=== PATIENT | male | born 1980 | race Caucasian/White ===

== ENCOUNTER 2020-02-13 16:11 | Observation (INO) | payer BC ==
[2020-02-13] MEDS: Sodium Chloride 0.9% 10 ML Syringe FLUSH PRN ×2 (17:04→18:13)
[2020-02-13] MEDS ORDERED: LORazepam 2 MG/ML SDV IVPUSH ONE (17:12)
--- NOTE | 2020-02-13 17:15 | EDM.PDOC ---
ED HPI GENERAL MEDICAL PROBLEM - General Chief Complaint: General Stated Complaint: NEAR SYNCOPE EPISODES Time Seen by Provider: 02/13/20 17:12 Source of Information: Reports: Patient, Family History Limitations: Reports: No Limitations - History of Present Illness INITIAL COMMENTS - FREE TEXT/NARRATIVE: The patient is an unfortunate 39-year-old male who presents the emergency department today with complaints of syncopal episode. The patient and spouse report that he was driving down the road he reports that he became very lightheaded and then reports that he saw black the reports that he clenched up and grabbed the steering well and flexed all of his muscles even his jaw and after he came to it took up to 5 minutes for him to regain his normal mental st atus. The patient normally drinks 4-5 beers per day, he was out drinking this weekend and has not had any alcohol today as they were driving home from [place]. Initial incident occurred 3 hours ago the spouse reports approximately 20 minutes prior to arrival he had an episode where he almost vomited this time the patient is diffusely tremulous - Related Data Allergies Allergy/AdvReac Type Severity Reaction Status Date / Time No Known Allergies Allergy Verified 02/13/20 16:29 Home Meds: Home Meds Acetaminophen/oxyCODONE [Percocet 325-5 MG] 1 tab PO Q4H PRN #20 tablet 12/04/14 [Rx] Cyclobenzaprine [Flexeril] 5 mg PO Q8HR PRN #10 tab 12/04/14 [Rx] Naproxen [Naprosyn] 500 mg PO Q12HR #30 tab 12/04/14 [Rx] Past Medical History - Past Health History Medical/Surgical History: Denies Medical/Surgical History Social & Family History - Tobacco Use Smoking Status *Q: Never Smoker - Caffeine Use Caffeine Use: Reports: Energy Drinks - Recreational Drug Use Recreational Drug Use: No ED ROS GENERAL - Review of Systems Review Of Systems: See Below Constitutional: Denies: Fever, Chills Neurological: Reports: Seizure, Syncope, Tremors ED EXAM, GENERAL - Physical Exam Exam: See Below Exam Limited By: No Limitations General Appearance: Alert, WD/WN, Moderate Distress, Other (Tremulous) Eye Exam: Bilateral Eye: Nystagmus (Laterally) Throat/Mouth: Normal Inspection, Normal Lips, Normal Teeth, Normal Gums, Normal Oropharynx, Normal Voice, No Airway Compromise Head: Atraumatic, Normocephalic Neck: Normal Inspection, Supple, Non-Tender, Full Range of Motion Respiratory/Chest: No Respiratory Distress, Lungs Clear, Normal Breath Sounds, No Accessory Muscle Use, Chest Non-Tender Cardiovascular: Normal Peripheral Pulses, Regular Rate, Rhythm, No Edema, No Gallop, No JVD, No Murmur, No Rub GI/Abdominal: Normal Bowel Sounds, Soft, Non-Tender, No Organomegaly, No Distention, No Abnormal Bruit, No Mass Back Exam: Normal Inspection, Full Range of Motion, NT Extremities: Normal Inspection, Normal Range of Motion, Non-Tender, Normal Capillary Refill, No Pedal Edema Neurological: Alert, Oriented, Other (Tremulous) Skin Exam: Warm, Dry, No Rash Course - Vital Signs Text/Narrative:: Head CT "impression: No acute abnormality." Chest x-ray interpreted by me LEIGH Last Recorded V/S: Last Vital Signs Temp 98.6 F 02/13/20 16:23 Pulse 94 02/13/20 16:23 Resp 18 02/13/20 16:23 BP 156/90 H 02/13/20 16:23 Pulse Ox 100 02/13/20 16:23 - Orders/Labs/Meds Orders: Active Orders 24 hr Category Date Time Status EKG Documentation Completion [RC] ASDIRECTED Care 02/13/20 16:42 Active Head wo Cont [CT] Stat Exams 02/13/20 17:15 Taken INR,PT,PROTHROMBIN TIME [COAG] Stat Lab 02/13/20 16:27 Received Sodium Chloride 0.9% [Saline Flush] Med 02/13/20 16:41 Active 10 ml FLUSH ASDIRECTED PRN Saline Lock Insert [OM.PC] Stat Oth 02/13/20 16:42 Ordered EKG 12 Lead [EK] Stat Ther 02/13/20 16:41 Ordered Medication Orders Sodium Chloride (Saline Flush) 10 ml FLUSH ASDIRECTED PRN PRN Reason: Keep Vein Open Last Admin: 02/13/20 18:13 Dose: 10 ml Documented by: Admin: 02/13/20 17:04 Dose: 10 ml Documented by: CLARK Labs: Laboratory Tests 02/13/20 02/13/20 02/13/20 Range/Units 16:27 16:27 18:14 WBC 10.53 H (4.23-9.07) K/mm3 RBC 4.80 (4.63-6.08) M/mm3 Hgb 15.8 (13.7-17.5) gm/dl Hct 44.2 (40.1-51.0) % MCV 92.1 (79.0-92.2) fl MCH 32.9 H (25.7-32.2) pg MCHC 35.7 H (32.2-35.5) g/dl RDW Std Deviation 41.4 (35.1-43.9) fL Plt Count 241 (163-337) K/mm3 MPV 10.0 (9.4-12.3) fl Neut % (Auto) 79.4 H (34.0-67.9) % Lymph % (Auto) 13.0 L (21.8-53.1) % [place] % (Auto) 7.0 (5.3-12.2) % Eos % (Auto) 0.1 L (0.8-7.0) Baso % (Auto) 0.4 (0.1-1.2) % Neut # (Auto) 8.36 H (1.78-5.38) K/mm3 Lymph # (Auto) 1.37 (1.32-3.57) K/mm3 [place] # (Auto) 0.74 (0.30-0.82) K/mm3 Eos # (Auto) 0.01 L (0.04-0.54) K/mm3 Baso # (Auto) 0.04 (0.01-0.08) K/mm3 Manual Slide Review Normal smear Sodium 132 L (136-145) mEq/L Potassium 3.0 L (3.5-5.1) mEq/L Chloride 92 L (98-107) mEq/L Carbon Dioxide 26 (21-32) mEq/L Anion Gap 17.0 H (5-15) BUN 4 L (7-18) mg/dL Creatinine 0.8 (0.7-1.3) mg/dL Est Cr Clr Drug Dosing 137.42 mL/min Estimated GFR (MDRD) > 60 (>60) mL/min BUN/Creatinine Ratio 5.0 L (14-18) Glucose 151 H (74-106) mg/dL Calcium 8.1 L (8.5-10.1) mg/dL Total Bilirubin 1.7 H (0.2-1.0) mg/dL AST 78 H (15-37) U/L ALT 49 (16-63) U/L Alkaline Phosphatase 107 (46-116) U/L Troponin I < 0.017 (0.00-0.056) ng/mL Total Protein 7.4 (6.4-8.2) g/dl Albumin 4.4 (3.4-5.0) g/dl Globulin 3.0 gm/dL Albumin/Globulin Ratio 1.5 (1-2) Urine Color Light yellow (Yellow) Urine Appearance Clear (Clear) Urine pH 7.0 (5.0-8.0) Ur Specific [place] 1.015 (1.005-1.030) Urine Protein Negative (Negative) Urine Glucose (UA) Negative (Negative) Urine Ketones Negative (Negative) Urine Occult Blood Negative (Negative) Urine Nitrite Negative (Negative) Urine Bilirubin Negative (Negative) Urine Urobilinogen 0.2 (0.2-1.0) Ur Leukocyte Esterase Negative (Negative) Urine Opiates Screen (EIZTTN=042) Ur Buprenorphine Scrn (CUTOFF=10) Ur Oxycodone Screen (AGL0VD=395) Urine Methadone Screen (YPP6DJ=803) Ur Propoxyphene Screen (PLLOFA=354) Ur Barbiturates Screen (UJKTYX=954) Ur Tricyclics Screen (JXCEBN=550) Ur Phencyclidine Scrn (CUTOFF=25) Ur Amphetamine Screen (PFDPXQ=967) U Methamphetamines Scrn (QSSXLT=729) U Benzodiazepines Scrn (KFQITB=558) U Cocaine Metab Screen (MVSASG=338) U Marijuana (THC) Screen (CUTOFF=50) Ethyl Alcohol 0.01 (0.00) gm% 02/13/20 Range/Units 18:14 WBC (4.23-9.07) K/mm3 RBC (4.63-6.08) M/mm3 Hgb (13.7-17.5) gm/dl Hct (40.1-51.0) % MCV (79.0-92.2) fl MCH (25.7-32.2) pg MCHC (32.2-35.5) g/dl RDW Std Deviation (35.1-43.9) fL Plt Count (163-337) K/mm3 MPV (9.4-12.3) fl Neut % (Auto) (34.0-67.9) % Lymph % (Auto) (21.8-53.1) % [place] % (Auto) (5.3-12.2) % Eos % (Auto) (0.8-7.0) Baso % (Auto) (0.1-1.2) % Neut # (Auto) (1.78-5.38) K/mm3 Lymph # (Auto) (1.32-3.57) K/mm3 [place] # (Auto) (0.30-0.82) K/mm3 Eos # (Auto) (0.04-0.54) K/mm3 Baso # (Auto) (0.01-0.08) K/mm3 Manual Slide Review Sodium (136-145) mEq/L Potassium (3.5-5.1) mEq/L Chloride (98-107) mEq/L Carbon Dioxide (21-32) mEq/L Anion Gap (5-15) BUN (7-18) mg/dL Creatinine (0.7-1.3) mg/dL Est Cr Clr Drug Dosing mL/min Estimated GFR (MDRD) (>60) mL/min BUN/Creatinine Ratio (14-18) Glucose (74-106) mg/dL Calcium (8.5-10.1) mg/dL Total Bilirubin (0.2-1.0) mg/dL AST (15-37) U/L ALT (16-63) U/L Alkaline Phosphatase (46-116) U/L Troponin I (0.00-0.056) ng/mL Total Protein (6.4-8.2) g/dl Albumin (3.4-5.0) g/dl Globulin gm/dL Albumin/Globulin Ratio (1-2) Urine Color (Yellow) Urine Appearance (Clear) Urine pH (5.0-8.0) Ur Specific [place] (1.005-1.030) Urine Protein (Negative) Urine Glucose (UA) (Negative) Urine Ketones (Negative) Urine Occult Blood (Negative) Urine Nitrite (Negative) Urine Bilirubin (Negative) Urine Urobilinogen (0.2-1.0) Ur Leukocyte Esterase (Negative) Urine Opiates Screen Negative (KUOSXU=144) Ur Buprenorphine Scrn Negative (CUTOFF=10) Ur Oxycodone Screen Negative (UIS9DD=310) Urine Methadone Screen Negative (MVI5UU=748) Ur Propoxyphene Screen Negative (CCEXDP=361) Ur Barbiturates Screen Negative (JFYCBY=547) Ur Tricyclics Screen Negative (ZLHZZA=179) Ur Phencyclidine Scrn Negative (CUTOFF=25) Ur Amphetamine Screen Negative (JMDHVK=660) U Methamphetamines Scrn Negative (HNZSEZ=401) U Benzodiazepines Scrn Negative (OASLTE=881) U Cocaine Metab Screen Negative (RAFKQK=252) U Marijuana (THC) Screen Negative (CUTOFF=50) Ethyl Alcohol (0.00) gm% Meds: Medications Generic Name Dose Route Start Last Admin Trade Name Freq PRN Reason Stop Dose Admin Sodium Chloride 10 ml 02/13/20 16:41 02/13/20 18:13 Saline Flush FLUSH 10 ml ASDIRECTED PRN Administration Keep Vein Open Discontinued Medications Generic Name Dose Route Start Last Admin Trade Name Freq PRN Reason Stop Dose Admin Lorazepam 1 mg 02/13/20 17:12 02/13/20 18:14 Ativan IVPUSH 02/13/20 17:13 1 mg ONETIME ONE Administration - Re-Assessments/Exams Free Text/Narrative Re-Assessment/Exam: 02/13/20 19:[address] Giordano who agrees to place the patient in observation status at this time Departure - Departure Time of Disposition: 19:17 Disposition: Refer to Observation Condition: Good Clinical Impression: Seizure Alcohol withdrawal Qualifiers: Complication of substance-induced condition: with unspecified complication Qualified Code(s): F10.239 - Alcohol dependence with withdrawal, unspecified - Discharge Information Referrals: PCP,None [Primary Care Provider] - Forms: ED Department Discharge Sepsis Event Note (ED) - Evaluation Sepsis Screening Result: No Definite Risk - Focused Exam Vital Signs: Vital Signs Temp Pulse Resp BP Pulse Ox 02/13/20 16:23 98.6 F 94 18 156/90 H 100 - My Orders Last 24 Hours: My Active Orders 02/13/20 16:27 INR,PT,PROTHROMBIN TIME [COAG] Stat 02/13/20 16:41 Sodium Chloride 0.9% [Saline Flush] 10 ml FLUSH ASDIRECTED PRN EKG 12 Lead [EK] Stat 02/13/20 16:42 EKG Documentation Completion [RC] ASDIRECTED Saline Lock Insert [OM.PC] Stat 02/13/20 17:15 Head wo Cont [CT] Stat - Assessment/Plan Last 24 Hours: My Active Orders 02/13/20 16:27 INR,PT,PROTHROMBIN TIME [COAG] Stat 02/13/20 16:41 Sodium Chloride 0.9% [Saline Flush] 10 ml FLUSH ASDIRECTED PRN EKG 12 Lead [EK] Stat 02/13/20 16:42 EKG Documentation Completion [RC] ASDIRECTED Saline Lock Insert [OM.PC] Stat 02/13/20 17:15 Head wo Cont [CT] Stat
--- NOTE | 2020-02-13 17:19 | CR ---
Chest: PA and lateral views of the chest were obtained. Comparison: No previous chest imaging. Heart size and mediastinum are normal. Lungs show increased areas of density overlying the left 7th posterolateral rib and 6th anterolateral rib most likely due to subacute healing rib fractures. Impression: 1. Presumed healing rib fractures as noted above. 2. Nothing acute is otherwise seen. Diagnostic code #3 This report was dictated in MDT
--- NOTE | 2020-02-13 20:22 | PCM.HP.2 ---
H&P History of Present Illness - General Date of Service: 02/13/20 Source of Information: Patient, EMS, Family History Limitations: Reports: No Limitations - History of Present Illness Initial Comments - Free Text/Narative: 39 year old male with hx of altered conciseness and post ictal period x 2 [address] home [place] [employer]. he reports drinking yesterday 12-14 beers during evening /day. no prev hx of blackouts /syncope/ seizures. no obie heart disease but hypertension untreated and lvh on ekg. freq skips meals and did not eat today . felt sweaty before locking up . he could hear talking but couldn't respond. felt out of body and then cannot remember anything for many minutes. muscles not sore but was tubing . na and k low and drinking diet pop and water today. non smoker.no drugs / no hx of withdrawal events before and otherwise healthy / 2 leg surgeries and hx of ringing in ears and normal hearing Onset of Symptoms: Reports: Today Symptom Onset Date: 02/13/20 Location: Reports: Generalized Associated Symptoms: Reports: Confusion, Diaphoresis, Nausea/Vomiting, Seizure, Syncope - Related Data Allergies/Adverse Reactions: Allergies Allergy/AdvReac Type Severity Reaction Status Date / Time No Known Allergies Allergy Verified 02/13/20 16:29 Home Medications: Home Meds Acetaminophen/oxyCODONE [Percocet 325-5 MG] 1 tab PO Q4H PRN #20 tablet 12/04/14 [Rx] Cyclobenzaprine [Flexeril] 5 mg PO Q8HR PRN #10 tab 12/04/14 [Rx] Naproxen [Naprosyn] 500 mg PO Q12HR #30 tab 12/04/14 [Rx] Past Medical History - Past Health History Medical/Surgical History: Denies Medical/Surgical History Social & Family History - Tobacco Use Smoking Status *Q: Never Smoker - Caffeine Use Caffeine Use: Reports: Energy Drinks - Recreational Drug Use Recreational Drug Use: No H&P Review of Systems - Review of Systems: Review Of Systems: See Below General: Reports: Diaphoresis HEENT: Reports: No Symptoms Pulmonary: Reports: No Symptoms Cardiovascular: Reports: Blood Pressure Problem Gastrointestinal: Reports: No Symptoms Genitourinary: Reports: No Symptoms Musculoskeletal: Reports: No Symptoms Skin: Reports: No Symptoms Psychiatric: Reports: No Symptoms Neurological: Reports: No Symptoms, Tremors Hematologic/Lymphatic: Reports: No Symptoms Immunologic: Reports: No Symptoms Exam - Exam Exam: See Below - Vital Signs Vital Signs: Last Vital Signs Temp 37.2 C 02/13/20 19:40 Pulse 85 02/13/20 19:40 Resp 16 02/13/20 19:40 BP 138/93 H 02/13/20 19:40 Pulse Ox 98 02/13/20 19:40 Weight: 88.451 kg - Exam General: Alert, Oriented, 4 HEENT: PERRLA, Hearing Intact, Mucosa Moist & [place], Nares Patent, Normal Nasal Septum, Posterior Pharynx Clear, Conjunctiva Clear, EOMI, EACs Clear, TMs Clear Neck: Supple, Trachea Midline, 2 Lungs: Clear to Auscultation, Normal Respiratory Effort Cardiovascular: Regular Rate, Regular Rhythm GI/Abdominal Exam: Normal Bowel Sounds, Soft, Non-Tender, No Organomegaly, No Distention, No Abnormal Bruit, No Mass, Pelvis Stable (Male) Exam: No Hernia, Normal Inspection, Normal Prostate, Circumcised Rectal (Males) Exam: Normal Exam, Normal Rectal Tone, Prostate Normal Back Exam: Normal Inspection, Full Range of Motion, NT Extremities: Normal Inspection, Normal Range of Motion, Non-Tender, No Pedal Edema, Normal Capillary Refill Skin: Warm, Dry, Intact Neurological: Cranial Nerves Intact, Reflexes Equal Bilateral Neuro Extensive - Mental Status: Alert, Oriented x3, Normal Mood/Affect, Normal Cognition Neuro Extensive - Motor, Sensory, Reflexes: CN II-XII Intact, Normal Gait, Normal Reflexes Psychiatric: Alert, Normal Affect, Normal Mood - Patient Data Lab Results Last 24 hrs: Laboratory Results - last 24 hr 02/13/20 02/13/20 02/13/20 Range/Units 16:27 16:27 18:14 WBC 10.53 H (4.23-9.07) K/mm3 RBC 4.80 (4.63-6.08) M/mm3 Hgb 15.8 (13.7-17.5) gm/dl Hct 44.2 (40.1-51.0) % MCV 92.1 (79.0-92.2) fl MCH 32.9 H (25.7-32.2) pg MCHC 35.7 H (32.2-35.5) g/dl RDW Std Deviation 41.4 (35.1-43.9) fL Plt Count 241 (163-337) K/mm3 MPV 10.0 (9.4-12.3) fl Neut % (Auto) 79.4 H (34.0-67.9) % Lymph % (Auto) 13.0 L (21.8-53.1) % [place] % (Auto) 7.0 (5.3-12.2) % Eos % (Auto) 0.1 L (0.8-7.0) Baso % (Auto) 0.4 (0.1-1.2) % Neut # (Auto) 8.36 H (1.78-5.38) K/mm3 Lymph # (Auto) 1.37 (1.32-3.57) K/mm3 [place] # (Auto) 0.74 (0.30-0.82) K/mm3 Eos # (Auto) 0.01 L (0.04-0.54) K/mm3 Baso # (Auto) 0.04 (0.01-0.08) K/mm3 Manual Slide Review Normal smear Sodium 132 L (136-145) mEq/L Potassium 3.0 L (3.5-5.1) mEq/L Chloride 92 L (98-107) mEq/L Carbon Dioxide 26 (21-32) mEq/L Anion Gap 17.0 H (5-15) BUN 4 L (7-18) mg/dL Creatinine 0.8 (0.7-1.3) mg/dL Est Cr Clr Drug Dosing 137.42 mL/min Estimated GFR (MDRD) > 60 (>60) mL/min BUN/Creatinine Ratio 5.0 L (14-18) Glucose 151 H (74-106) mg/dL Calcium 8.1 L (8.5-10.1) mg/dL Total Bilirubin 1.7 H (0.2-1.0) mg/dL AST 78 H (15-37) U/L ALT 49 (16-63) U/L Alkaline Phosphatase 107 (46-116) U/L Troponin I < 0.017 (0.00-0.056) ng/mL Total Protein 7.4 (6.4-8.2) g/dl Albumin 4.4 (3.4-5.0) g/dl Globulin 3.0 gm/dL Albumin/Globulin Ratio 1.5 (1-2) Urine Color Light yellow (Yellow) Urine Appearance Clear (Clear) Urine pH 7.0 (5.0-8.0) Ur Specific [place] 1.015 (1.005-1.030) Urine Protein Negative (Negative) Urine Glucose (UA) Negative (Negative) Urine Ketones Negative (Negative) Urine Occult Blood Negative (Negative) Urine Nitrite Negative (Negative) Urine Bilirubin Negative (Negative) Urine Urobilinogen 0.2 (0.2-1.0) Ur Leukocyte Esterase Negative (Negative) Urine Opiates Screen (NJCNDH=382) Ur Buprenorphine Scrn (CUTOFF=10) Ur Oxycodone Screen (HMG5SR=925) Urine Methadone Screen (QYB8LM=339) Ur Propoxyphene Screen (JBDOKP=317) Ur Barbiturates Screen (CABSUL=439) Ur Tricyclics Screen (ULAUVG=126) Ur Phencyclidine Scrn (CUTOFF=25) Ur Amphetamine Screen (ADWQXQ=482) U Methamphetamines Scrn (YUPHJK=683) U Benzodiazepines Scrn (NEOADU=013) U Cocaine Metab Screen (AZIZXR=866) U Marijuana (THC) Screen (CUTOFF=50) Ethyl Alcohol 0.01 (0.00) gm% 02/13/20 Range/Units 18:14 WBC (4.23-9.07) K/mm3 RBC (4.63-6.08) M/mm3 Hgb (13.7-17.5) gm/dl Hct (40.1-51.0) % MCV (79.0-92.2) fl MCH (25.7-32.2) pg MCHC (32.2-35.5) g/dl RDW Std Deviation (35.1-43.9) fL Plt Count (163-337) K/mm3 MPV (9.4-12.3) fl Neut % (Auto) (34.0-67.9) % Lymph % (Auto) (21.8-53.1) % [place] % (Auto) (5.3-12.2) % Eos % (Auto) (0.8-7.0) Baso % (Auto) (0.1-1.2) % Neut # (Auto) (1.78-5.38) K/mm3 Lymph # (Auto) (1.32-3.57) K/mm3 [place] # (Auto) (0.30-0.82) K/mm3 Eos # (Auto) (0.04-0.54) K/mm3 Baso # (Auto) (0.01-0.08) K/mm3 Manual Slide Review Sodium (136-145) mEq/L Potassium (3.5-5.1) mEq/L Chloride (98-107) mEq/L Carbon Dioxide (21-32) mEq/L Anion Gap (5-15) BUN (7-18) mg/dL Creatinine (0.7-1.3) mg/dL Est Cr Clr Drug Dosing mL/min Estimated GFR (MDRD) (>60) mL/min BUN/Creatinine Ratio (14-18) Glucose (74-106) mg/dL Calcium (8.5-10.1) mg/dL Total Bilirubin (0.2-1.0) mg/dL AST (15-37) U/L ALT (16-63) U/L Alkaline Phosphatase (46-116) U/L Troponin I (0.00-0.056) ng/mL Total Protein (6.4-8.2) g/dl Albumin (3.4-5.0) g/dl Globulin gm/dL Albumin/Globulin Ratio (1-2) Urine Color (Yellow) Urine Appearance (Clear) Urine pH (5.0-8.0) Ur Specific [place] (1.005-1.030) Urine Protein (Negative) Urine Glucose (UA) (Negative) Urine Ketones (Negative) Urine Occult Blood (Negative) Urine Nitrite (Negative) Urine Bilirubin (Negative) Urine Urobilinogen (0.2-1.0) Ur Leukocyte Esterase (Negative) Urine Opiates Screen Negative (LYXBWN=052) Ur Buprenorphine Scrn Negative (CUTOFF=10) Ur Oxycodone Screen Negative (EDR3PP=403) Urine Methadone Screen Negative (YCE5TV=823) Ur Propoxyphene Screen Negative (AXOGAY=623) Ur Barbiturates Screen Negative (AZYGWB=043) Ur Tricyclics Screen Negative (LHAPTI=431) Ur Phencyclidine Scrn Negative (CUTOFF=25) Ur Amphetamine Screen Negative (HTNMLI=554) U Methamphetamines Scrn Negative (UTMNHF=608) U Benzodiazepines Scrn Negative (SHGHQU=157) U Cocaine Metab Screen Negative (ZTNVXS=070) U Marijuana (THC) Screen Negative (CUTOFF=50) Ethyl Alcohol (0.00) gm% Result Diagrams: 02/13/20 16:27 02/13/20 16:27 EKG INTERPRETATION Rhythm: NSR [place]: LAD-Left [place] Deviation P-Wave: Enlarged QRS: Normal ST-T: Elevated QT: Normal (lad/lvh voltages no volume overload) Sepsis Event Note - Evaluation Sepsis Screening Result: No Definite Risk - Focused Exam Vital Signs: Vital Signs Temp Pulse Resp BP Pulse Ox 02/13/20 19:40 37.2 C 85 16 138/93 H 98 02/13/20 16:23 37.0 C 94 18 156/90 H 100 Date Exam was Performed: 02/13/20 Time Exam was Performed: 20:15 - Problem List (1) Hyponatremia SNOMED Code(s): 14935934 ICD Code: E87.1 - HYPO-OSMOLALITY AND HYPONATREMIA Status: Acute Priority: Medium Current Visit: Yes Onset Date: ~02/13/20 Problem Details: cause not clear but probably helped cause muscle tightening and ? seizure. (2) Hypokalemia SNOMED Code(s): 61318036 ICD Code: E87.6 - HYPOKALEMIA Status: Acute Priority: Medium Current Visit: Yes Onset Date: ~02/13/20 Problem Details: will replace ca and k (3) Alcohol withdrawal SNOMED Code(s): 475353333 ICD Code: F10.239 - ALCOHOL DEPENDENCE WITH WITHDRAWAL, UNSPECIFIED Status: Acute Priority: Medium Current Visit: Yes Onset Date: ~02/13/20 Qualifiers: Complication of substance-induced condition: with unspecified complication Qualified Code(s): F10.239 - Alcohol dependence with withdrawal, unspecified (4) Seizure SNOMED Code(s): 33515658 ICD Code: R56.9 - UNSPECIFIED CONVULSIONS Status: Acute Priority: Medium Current Visit: Yes Onset Date: ~02/13/20 Problem Details: hypocalcemia with increased anion gap and hx of heavy etoh ingestion and not eating today . (5) Hypertension SNOMED Code(s): 53584944 ICD Code: I10 - ESSENTIAL (PRIMARY) HYPERTENSION Status: Acute Priority: Medium Current Visit: Yes Onset Date: ~02/13/20 Qualifiers: Hypertension type: unspecified Qualified Code(s): I10 - Essential (primary) hypertension (6) LVH (left ventricular hypertrophy) SNOMED Code(s): 18478659 ICD Code: I51.7 - CARDIOMEGALY Status: Acute Priority: Medium Current Visit: Yes Onset Date: ~02/13/20 Problem Details: echo ordered Problem List Initiated/Reviewed/Updated: Yes Orders Last 24hrs: Active Orders 24 hr Category Date Time Status EKG Documentation Completion [RC] ASDIRECTED Care 02/13/20 16:42 Active Head wo Cont [CT] Stat Exams 02/13/20 17:15 Taken CORONAVIRUS COVID-19 RAPID [MOLEC] Stat Lab 02/13/20 19:34 Received INR,PT,PROTHROMBIN TIME [COAG] Stat Lab 02/13/20 16:27 Received Sodium Chloride 0.9% [Saline Flush] Med 02/13/20 16:41 Active 10 ml FLUSH ASDIRECTED PRN Saline Lock Insert [OM.PC] Stat Oth 02/13/20 16:42 Ordered EKG 12 Lead [EK] Stat Ther 02/13/20 16:41 Ordered Medication Orders Sodium Chloride (Saline Flush) 10 ml FLUSH ASDIRECTED PRN PRN Reason: Keep Vein Open Last Admin: 02/13/20 18:13 Dose: 10 ml Documented by: Admin: 02/13/20 17:04 Dose: 10 ml Documented by: CLARK Assessment/Plan Comment:: plan correct electrolytes na /k and a.g. monitor for seizure activity / check cpk mri head eeg b12 and folate and thiamine. recheck labs in am . cardiac monitoring . monitor b.p. - Mortality Measure Prognosis:: Good
[2020-02-13] MEDS ORDERED: Thiamine 100 MG in Sodium Chloride 0.9% 100 ML IV ONE (20:38)
[2020-02-14] MEDS: Vitamin B Complex With Vitamin C Cap PO SCH ×2 (00:30→09:43)
[2020-02-14] MEDS ORDERED: Thiamine 100 MG in Sodium Chloride 0.9% 100 ML IV ONE (00:30)
[2020-02-14] MEDS: Potassium Chloride 20 MEQ Tab.ER PO SCH ×2 (00:30→09:43)
[2020-02-14] MEDS: Dextrose 5%-Lact Ringers w/KCl 1,000 ML IV SCH ×2 (00:59→09:43)
--- NOTE | 2020-02-14 06:52 | CT ---
Head CT Technique: Multiple axial sections through the brain were obtained. Intravenous contrast was not utilized. Comparison: No prior intracranial imaging is available. Findings: Ventricles along with basal cisterns and sulci over the convexities are within normal limits for the patient's age. No abnormal parenchymal densities are seen. No evidence of intracranial hemorrhage. No midline shift or mass-effect is appreciated. Bone window settings were reviewed. Visualized mastoid sinuses and paranasal sinuses show nothing acute. No acute calvarial finding is seen. Impression: 1. Nothing acute is identified on noncontrast head CT exam. Diagnostic code #1 This report was dictated in MDT I agree with preliminary report from [facility], finalized on 02/13/20, 6:57 PM Central Daylight Time
[2020-02-14] MEDS ORDERED: diphenhydrAMINE 50 MG/ML SDV IVPUSH ONE (10:49)
[2020-02-14] MEDS ORDERED: Thiamine 100 MG Tab PO SCH (12:00)
[2020-02-14] MEDS ORDERED: Folic Acid 1 MG Tab PO SCH (12:00)
[2020-02-14 12:11] VITALS: BP 147/75; PULSE 87
--- NOTE | 2020-02-14 12:13 | PCM.DCSUM1 ---
Discharge Summary - Hospital Course Free Text/Narrative:: 39 year old male that presented to the ER with 2 syncopal episodes, one of which was was while driving home from [place] after the 10 of February weekend and he reported that he saw black and his reported that he clenched up and grabbed the steering wheel and flexed all his muscles including his jaw which took him about 5 minutes to come out of and back to a normal mental status. 02/13/2020 No previous history of blackouts, syncope, or seizures No congestive heart disease, but does have untreated hypertension and LVH on EKG Non smoker and no drug use No history of withdrawal events before Has a history of 2 prior leg surgeries History of ringing in the ears and has normal hearing States that he was drinking alcohol over the 10 of February weekend and had about 12-14 beers yesterday States that he was drinking diet pop and water today States that he frequently skips meals and did not eat today States that he felt sweaty before locking up while driving States that he could hear his talking to him, but he couldn't respond when he was all locked up States that he felt out of body and then can't remember what had happened States that his muscle don't feel any more sore than they did before the episode and that he was tubing over the weekend Discussed Na and K low in labs and needing to correct electrolytes Na, K, and AG Discussed rechecking labs tomorrow morning with a B12, folate, and thiamine Discussed checking CPK Discussed monitoring for seizure activity Discussed monitoring blood pressure and doing cardiac monitoring Discussed getting an MRI done Discussed getting and EEG done 02/14/2020 denies any doctors ever telling him he has low Na states that he drank about 12 beers daily on Thursday, Thursday, and Thursday states that he didn't drink a lot of water states that he was eating throughout the day states that he drinks energy drinks of Monster and Mountain Dew Kickstarts and soda mainly rather than water States that he slept well last night States that he has a good appetite states that he has been up and walking well Discussed getting an EEG done Discussed getting labs done Discussed going to a neurologist for further evaluation Discussed discharging to home today and staying home from work and resting and taking it easy HPI Initial Comments: 39 year old male that presented to the ER with 2 syncopal episodes, one of which was was while driving home from [place] after the 10 of February weekend and he reported that he saw black and his reported that he clenched up and grabbed the steering wheel and flexed all his muscles including his jaw which took him about 5 minutes to come out of and back to a normal mental status. 02/13/2020 No previous history of blackouts, syncope, or seizures No congestive heart disease, but does have untreated hypertension and LVH on EKG Non smoker and no drug use No history of withdrawal events before Has a history of 2 prior leg surgeries History of ringing in the ears and has normal hearing States that he was drinking alcohol over the 10 of February weekend and had about 12-14 beers yesterday States that he was drinking diet pop and water today States that he frequently skips meals and did not eat today States that he felt sweaty before locking up while driving States that he could hear his talking to him, but he couldn't respond when he was all locked up States that he felt out of body and then can't remember what had happened States that his muscle don't feel any more sore than they did before the episode and that he was tubing over the weekend Discussed Na and K low in labs and needing to correct electrolytes Na, K, and AG Discussed rechecking labs tomorrow morning with a B12, folate, and thiamine Discussed checking CPK Discussed monitoring for seizure activity Discussed monitoring blood pressure and doing cardiac monitoring Discussed getting an MRI done Discussed getting and EEG done 02/14/2020 denies any doctors ever telling him he has low Na states that he drank about 12 beers daily on Thursday, Thursday, and Thursday states that he didn't drink a lot of water states that he was eating throughout the day states that he drinks energy drinks of Monster and Mountain Dew Kickstarts and soda mainly rather than water States that he slept well last night States that he has a good appetite states that he has been up and walking well Discussed getting an EEG done Discussed getting labs done Discussed going to a neurologist for further evaluation Discussed discharging to home today and staying home from work and resting and taking it easy - Discharge Data Discharge Date: 02/14/20 Discharge Disposition: Home, Self-Care 01 Condition: Good - Referral to Home Health Primary Care Physician: PCP None - Patient Instructions Diet: Regular Diet as Tolerated Activity: Rest and Relax Today Driving: Do Not Drive Showering/Bathing: May Shower Notify Provider of: Fever, Increased Pain, Swelling and Redness, Nausea and/or Vomiting Other/Special Instructions: monitor salt intake and quit moster drinks and will reassess b.p in 10 days - Discharge Plan Prescriptions/Med Rec: Vitamin B Complex with C [Super B With Vitamin C] 1 cap PO DAILY #30 cap Thiamine [Vitamin B-1] 100 mg PO DAILY #30 tablet Home Medications: Home Meds Thiamine [Vitamin B-1] 100 mg PO DAILY #30 tablet 02/14/20 [Rx] Vitamin B Complex with C [Super B With Vitamin C] 1 cap PO DAILY #30 cap 02/14/20 [Rx] Oxygen Therapy Mode: Room Air Patient Handouts: Hypokalemia, Preventing Hypertension, Alcohol Withdrawal Syndrome, Water Intoxication Forms: ED Department Discharge Referrals: PCP,None [Primary Care Provider] - - Discharge Summary/Plan Comment DC Time >30 min.: Yes - General Info Date of Service: 02/14/20 Admission Dx/Problem (Free Text: 39 year old male that presented to the ER with 2 syncopal episodes, one of which was was while driving home from [place] after the 10 of February weekend and he reported that he saw black and his reported that he clenched up and grabbed the steering wheel and flexed all his muscles including his jaw which took him about 5 minutes to come out of and back to a normal mental status. 02/13/2020 No previous history of blackouts, syncope, or seizures No congestive heart disease, but does have untreated hypertension and LVH on EKG Non smoker and no drug use No history of withdrawal events before Has a history of 2 prior leg surgeries History of ringing in the ears and has normal hearing States that he was drinking alcohol over the 10 of February weekend and had about 12-14 beers yesterday States that he was drinking diet pop and water today States that he frequently skips meals and did not eat today States that he felt sweaty before locking up while driving States that he could hear his talking to him, but he couldn't respond when he was all locked up States that he felt out of body and then can't remember what had happened States that his muscle don't feel any more sore than they did before the episode and that he was tubing over the weekend Discussed Na and K low in labs and needing to correct electrolytes Na, K, and AG Discussed rechecking labs tomorrow morning with a B12, folate, and thiamine Discussed checking CPK Discussed monitoring for seizure activity Discussed monitoring blood pressure and doing cardiac monitoring Discussed getting an MRI done Discussed getting and EEG done 02/14/2020 denies any doctors ever telling him he has low Na states that he drank about 12 beers daily on Thursday, Thursday, and Thursday states that he didn't drink a lot of water states that he was eating throughout the day states that he drinks energy drinks of Monster and Mountain Dew Kickstarts and soda mainly rather than water States that he slept well last night States that he has a good appetite states that he has been up and walking well Discussed getting an EEG done Discussed getting labs done Discussed going to a neurologist for further evaluation Discussed discharging to home today and staying home from work and resting and taking it easy Subjective Update: 39 year old male that presented to the ER with 2 syncopal episodes, one of which was was while driving home from [place] after the 10 of February weekend and he reported that he saw black and his reported that he clenched up and grabbed the steering wheel and flexed all his muscles including his jaw which took him about 5 minutes to come out of and back to a normal mental status. 02/13/2020 No previous history of blackouts, syncope, or seizures No congestive heart disease, but does have untreated hypertension and LVH on EKG Non smoker and no drug use No history of withdrawal events before Has a history of 2 prior leg surgeries History of ringing in the ears and has normal hearing States that he was drinking alcohol over the 10 of February weekend and had about 12-14 beers yesterday States that he was drinking diet pop and water today States that he frequently skips meals and did not eat today States that he felt sweaty before locking up while driving States that he could hear his talking to him, but he couldn't respond when he was all locked up States that he felt out of body and then can't remember what had happened States that his muscle don't feel any more sore than they did before the episode and that he was tubing over the weekend Discussed Na and K low in labs and needing to correct electrolytes Na, K, and AG Discussed rechecking labs tomorrow morning with a B12, folate, and thiamine Discussed checking CPK Discussed monitoring for seizure activity Discussed monitoring blood pressure and doing cardiac monitoring Discussed getting an MRI done Discussed getting and EEG done 02/14/2020 denies any doctors ever telling him he has low Na states that he drank about 12 beers daily on Thursday, Thursday, and Thursday states that he didn't drink a lot of water states that he was eating throughout the day states that he drinks energy drinks of Monster and Mountain Dew Kickstarts and soda mainly rather than water States that he slept well last night States that he has a good appetite states that he has been up and walking well Discussed getting an EEG done Discussed getting labs done Discussed going to a neurologist for further evaluation Discussed discharging to home today and staying home from work and resting and taking it easy Functional Status: Reports: Pain Controlled - Review of Systems General: Reports: No Symptoms HEENT: Reports: No Symptoms Pulmonary: Reports: No Symptoms Cardiovascular: Reports: No Symptoms Gastrointestinal: Reports: No Symptoms Genitourinary: Reports: No Symptoms Musculoskeletal: Reports: No Symptoms Skin: Reports: No Symptoms Neurological: Reports: No Symptoms Psychiatric: Reports: No Symptoms - Patient Data Vitals - Most Recent: Last Vital Signs Temp 97.2 F 02/14/20 09:41 Pulse 66 02/14/20 09:41 Resp 18 02/14/20 09:41 BP 130/90 02/14/20 09:41 Pulse Ox 98 02/14/20 09:41 Weight - Most Recent: 83.053 kg I&O - Last 24 hours: Intake & Output 02/13/20 02/14/20 02/14/20 22:59 06:59 14:59 Intake Total 200 1085 Output Total 900 Balance -700 1085 Lab Results - Last 24 hrs: Laboratory Results - last 24 hr 02/13/20 02/13/20 02/13/20 Range/Units 16:27 16:27 16:27 WBC 10.53 H (4.23-9.07) K/mm3 RBC 4.80 (4.63-6.08) M/mm3 Hgb 15.8 (13.7-17.5) gm/dl Hct 44.2 (40.1-51.0) % MCV 92.1 (79.0-92.2) fl MCH 32.9 H (25.7-32.2) pg MCHC 35.7 H (32.2-35.5) g/dl RDW Std Deviation 41.4 (35.1-43.9) fL Plt Count 241 (163-337) K/mm3 MPV 10.0 (9.4-12.3) fl Neut % (Auto) 79.4 H (34.0-67.9) % Lymph % (Auto) 13.0 L (21.8-53.1) % [place] % (Auto) 7.0 (5.3-12.2) % Eos % (Auto) 0.1 L (0.8-7.0) Baso % (Auto) 0.4 (0.1-1.2) % Neut # (Auto) 8.36 H (1.78-5.38) K/mm3 Lymph # (Auto) 1.37 (1.32-3.57) K/mm3 [place] # (Auto) 0.74 (0.30-0.82) K/mm3 Eos # (Auto) 0.01 L (0.04-0.54) K/mm3 Baso # (Auto) 0.04 (0.01-0.08) K/mm3 Manual Slide Review Normal smear PT 10.3 (9.7-12.0) SECONDS INR 0.94 Sodium 132 L (136-145) mEq/L Potassium 3.0 L (3.5-5.1) mEq/L Chloride 92 L (98-107) mEq/L Carbon Dioxide 26 (21-32) mEq/L Anion Gap 17.0 H (5-15) BUN 4 L (7-18) mg/dL Creatinine 0.8 (0.7-1.3) mg/dL Est Cr Clr Drug Dosing 137.42 mL/min Estimated GFR (MDRD) > 60 (>60) mL/min BUN/Creatinine Ratio 5.0 L (14-18) Glucose 151 H (74-106) mg/dL Serum Osmolality (280-300) mosm/kg Calcium 8.1 L (8.5-10.1) mg/dL Magnesium (1.8-2.4) mg/dl Total Bilirubin 1.7 H (0.2-1.0) mg/dL AST 78 H (15-37) U/L ALT 49 (16-63) U/L Alkaline Phosphatase 107 (46-116) U/L Creatine Kinase (39-308) U/L CK-MB (CK-2) (0-3.6) ng/ml Troponin I < 0.017 (0.00-0.056) ng/mL Total Protein 7.4 (6.4-8.2) g/dl Albumin 4.4 (3.4-5.0) g/dl Globulin 3.0 gm/dL Albumin/Globulin Ratio 1.5 (1-2) Urine Color (Yellow) Urine Appearance (Clear) Urine pH (5.0-8.0) Ur Specific [place] (1.005-1.030) Urine Protein (Negative) Urine Glucose (UA) (Negative) Urine Ketones (Negative) Urine Occult Blood (Negative) Urine Nitrite (Negative) Urine Bilirubin (Negative) Urine Urobilinogen (0.2-1.0) Ur Leukocyte Esterase (Negative) Urine Osmolality (400-1100) mosm/kg Urine Opiates Screen (OYDDGQ=895) Ur Buprenorphine Scrn (CUTOFF=10) Ur Oxycodone Screen (RPV5LV=865) Urine Methadone Screen (OQR2PR=336) Ur Propoxyphene Screen (XBTTEL=410) Ur Barbiturates Screen (DQQSFJ=600) Ur Tricyclics Screen (PHVMIJ=605) Ur Phencyclidine Scrn (CUTOFF=25) Ur Amphetamine Screen (SIEZIZ=876) U Methamphetamines Scrn (RPRIKR=403) U Benzodiazepines Scrn (XFEKRH=923) U Cocaine Metab Screen (CXSDLN=192) U Marijuana (THC) Screen (CUTOFF=50) Ethyl Alcohol 0.01 (0.00) gm% COVID-19 (REBECCA) (NEGATIVE) 02/13/20 02/13/20 02/13/20 Range/Units 16:27 18:14 18:14 WBC (4.23-9.07) K/mm3 RBC (4.63-6.08) M/mm3 Hgb (13.7-17.5) gm/dl Hct (40.1-51.0) % MCV (79.0-92.2) fl MCH (25.7-32.2) pg MCHC (32.2-35.5) g/dl RDW Std Deviation (35.1-43.9) fL Plt Count (163-337) K/mm3 MPV (9.4-12.3) fl Neut % (Auto) (34.0-67.9) % Lymph % (Auto) (21.8-53.1) % [place] % (Auto) (5.3-12.2) % Eos % (Auto) (0.8-7.0) Baso % (Auto) (0.1-1.2) % Neut # (Auto) (1.78-5.38) K/mm3 Lymph # (Auto) (1.32-3.57) K/mm3 [place] # (Auto) (0.30-0.82) K/mm3 Eos # (Auto) (0.04-0.54) K/mm3 Baso # (Auto) (0.01-0.08) K/mm3 Manual Slide Review PT (9.7-12.0) SECONDS INR Sodium (136-145) mEq/L Potassium (3.5-5.1) mEq/L Chloride (98-107) mEq/L Carbon Dioxide (21-32) mEq/L Anion Gap (5-15) BUN (7-18) mg/dL Creatinine (0.7-1.3) mg/dL Est Cr Clr Drug Dosing mL/min Estimated GFR (MDRD) (>60) mL/min BUN/Creatinine Ratio (14-18) Glucose (74-106) mg/dL Serum Osmolality 275 L (280-300) mosm/kg Calcium (8.5-10.1) mg/dL Magnesium (1.8-2.4) mg/dl Total Bilirubin (0.2-1.0) mg/dL AST (15-37) U/L ALT (16-63) U/L Alkaline Phosphatase (46-116) U/L Creatine Kinase (39-308) U/L CK-MB (CK-2) (0-3.6) ng/ml Troponin I (0.00-0.056) ng/mL Total Protein (6.4-8.2) g/dl Albumin (3.4-5.0) g/dl Globulin gm/dL Albumin/Globulin Ratio (1-2) Urine Color Light yellow (Yellow) Urine Appearance Clear (Clear) Urine pH 7.0 (5.0-8.0) Ur Specific [place] 1.015 (1.005-1.030) Urine Protein Negative (Negative) Urine Glucose (UA) Negative (Negative) Urine Ketones Negative (Negative) Urine Occult Blood Negative (Negative) Urine Nitrite Negative (Negative) Urine Bilirubin Negative (Negative) Urine Urobilinogen 0.2 (0.2-1.0) Ur Leukocyte Esterase Negative (Negative) Urine Osmolality (400-1100) mosm/kg Urine Opiates Screen Negative (RODRSB=518) Ur Buprenorphine Scrn Negative (CUTOFF=10) Ur Oxycodone Screen Negative (UUH3RT=329) Urine Methadone Screen Negative (OUD5ZM=504) Ur Propoxyphene Screen Negative (DIIZXE=661) Ur Barbiturates Screen Negative (EIBJQW=072) Ur Tricyclics Screen Negative (ZSDBGJ=018) Ur Phencyclidine Scrn Negative (CUTOFF=25) Ur Amphetamine Screen Negative (AXENTH=838) U Methamphetamines Scrn Negative (XYOSDL=401) U Benzodiazepines Scrn Negative (XRCJTJ=403) U Cocaine Metab Screen Negative (XPLLHZ=998) U Marijuana (THC) Screen Negative (CUTOFF=50) Ethyl Alcohol (0.00) gm% COVID-19 (REBECCA) (NEGATIVE) 02/13/20 02/13/20 02/13/20 Range/Units 18:14 19:34 20:52 WBC (4.23-9.07) K/mm3 RBC (4.63-6.08) M/mm3 Hgb (13.7-17.5) gm/dl Hct (40.1-51.0) % MCV (79.0-92.2) fl MCH (25.7-32.2) pg MCHC (32.2-35.5) g/dl RDW Std Deviation (35.1-43.9) fL Plt Count (163-337) K/mm3 MPV (9.4-12.3) fl Neut % (Auto) (34.0-67.9) % Lymph % (Auto) (21.8-53.1) % [place] % (Auto) (5.3-12.2) % Eos % (Auto) (0.8-7.0) Baso % (Auto) (0.1-1.2) % Neut # (Auto) (1.78-5.38) K/mm3 Lymph # (Auto) (1.32-3.57) K/mm3 [place] # (Auto) (0.30-0.82) K/mm3 Eos # (Auto) (0.04-0.54) K/mm3 Baso # (Auto) (0.01-0.08) K/mm3 Manual Slide Review PT (9.7-12.0) SECONDS INR Sodium (136-145) mEq/L Potassium (3.5-5.1) mEq/L Chloride (98-107) mEq/L Carbon Dioxide (21-32) mEq/L Anion Gap (5-15) BUN (7-18) mg/dL Creatinine (0.7-1.3) mg/dL Est Cr Clr Drug Dosing mL/min Estimated GFR (MDRD) (>60) mL/min BUN/Creatinine Ratio (14-18) Glucose (74-106) mg/dL Serum Osmolality (280-300) mosm/kg Calcium (8.5-10.1) mg/dL Magnesium 1.8 (1.8-2.4) mg/dl Total Bilirubin (0.2-1.0) mg/dL AST (15-37) U/L ALT (16-63) U/L Alkaline Phosphatase (46-116) U/L Creatine Kinase 4290 H (39-308) U/L CK-MB (CK-2) 2.5 (0-3.6) ng/ml Troponin I < 0.017 (0.00-0.056) ng/mL Total Protein (6.4-8.2) g/dl Albumin (3.4-5.0) g/dl Globulin gm/dL Albumin/Globulin Ratio (1-2) Urine Color (Yellow) Urine Appearance (Clear) Urine pH (5.0-8.0) Ur Specific [place] (1.005-1.030) Urine Protein (Negative) Urine Glucose (UA) (Negative) Urine Ketones (Negative) Urine Occult Blood (Negative) Urine Nitrite (Negative) Urine Bilirubin (Negative) Urine Urobilinogen (0.2-1.0) Ur Leukocyte Esterase (Negative) Urine Osmolality 102 L (400-1100) mosm/kg Urine Opiates Screen (PAKBFL=216) Ur Buprenorphine Scrn (CUTOFF=10) Ur Oxycodone Screen (ZUN1ZF=873) Urine Methadone Screen (NFG4FV=315) Ur Propoxyphene Screen (BFKSYB=402) Ur Barbiturates Screen (SJSSYZ=404) Ur Tricyclics Screen (PFVIUG=562) Ur Phencyclidine Scrn (CUTOFF=25) Ur Amphetamine Screen (RQVVYR=286) U Methamphetamines Scrn (KTPLXE=160) U Benzodiazepines Scrn (PHOUTE=334) U Cocaine Metab Screen (LRVPXY=381) U Marijuana (THC) Screen (CUTOFF=50) Ethyl Alcohol (0.00) gm% COVID-19 (REBECCA) Negative (NEGATIVE) 02/14/20 Range/Units 06:10 WBC (4.23-9.07) K/mm3 RBC (4.63-6.08) M/mm3 Hgb (13.7-17.5) gm/dl Hct (40.1-51.0) % MCV (79.0-92.2) fl MCH (25.7-32.2) pg MCHC (32.2-35.5) g/dl RDW Std Deviation (35.1-43.9) fL Plt Count (163-337) K/mm3 MPV (9.4-12.3) fl Neut % (Auto) (34.0-67.9) % Lymph % (Auto) (21.8-53.1) % [place] % (Auto) (5.3-12.2) % Eos % (Auto) (0.8-7.0) Baso % (Auto) (0.1-1.2) % Neut # (Auto) (1.78-5.38) K/mm3 Lymph # (Auto) (1.32-3.57) K/mm3 [place] # (Auto) (0.30-0.82) K/mm3 Eos # (Auto) (0.04-0.54) K/mm3 Baso # (Auto) (0.01-0.08) K/mm3 Manual Slide Review PT (9.7-12.0) SECONDS INR Sodium 142 D (136-145) mEq/L Potassium 3.6 (3.5-5.1) mEq/L Chloride 104 D (98-107) mEq/L Carbon Dioxide 34 H (21-32) mEq/L Anion Gap 7.6 (5-15) BUN 7 (7-18) mg/dL Creatinine 0.9 (0.7-1.3) mg/dL Est Cr Clr Drug Dosing 122.15 mL/min Estimated GFR (MDRD) > 60 (>60) mL/min BUN/Creatinine Ratio 7.8 L (14-18) Glucose 121 H (74-106) mg/dL Serum Osmolality (280-300) mosm/kg Calcium 8.7 (8.5-10.1) mg/dL Magnesium (1.8-2.4) mg/dl Total Bilirubin (0.2-1.0) mg/dL AST (15-37) U/L ALT (16-63) U/L Alkaline Phosphatase (46-116) U/L Creatine Kinase (39-308) U/L CK-MB (CK-2) (0-3.6) ng/ml Troponin I (0.00-0.056) ng/mL Total Protein (6.4-8.2) g/dl Albumin (3.4-5.0) g/dl Globulin gm/dL Albumin/Globulin Ratio (1-2) Urine Color (Yellow) Urine Appearance (Clear) Urine pH (5.0-8.0) Ur Specific [place] (1.005-1.030) Urine Protein (Negative) Urine Glucose (UA) (Negative) Urine Ketones (Negative) Urine Occult Blood (Negative) Urine Nitrite (Negative) Urine Bilirubin (Negative) Urine Urobilinogen (0.2-1.0) Ur Leukocyte Esterase (Negative) Urine Osmolality (400-1100) mosm/kg Urine Opiates Screen (UNDILA=796) Ur Buprenorphine Scrn (CUTOFF=10) Ur Oxycodone Screen (KRJ2AS=094) Urine Methadone Screen (FGG4SW=596) Ur Propoxyphene Screen (DHRFAB=313) Ur Barbiturates Screen (POVOEG=187) Ur Tricyclics Screen (XFHCVI=981) Ur Phencyclidine Scrn (CUTOFF=25) Ur Amphetamine Screen (YGQHYS=234) U Methamphetamines Scrn (BWXMKX=088) U Benzodiazepines Scrn (LIWKQN=253) U Cocaine Metab Screen (QYQHIZ=368) U Marijuana (THC) Screen (CUTOFF=50) Ethyl Alcohol (0.00) gm% COVID-19 (REBECCA) (NEGATIVE) Med Orders - Current: Current Medications Potassium Cl/Dextrose/Lact Ringer's (D5 Lr With 20 Meq Kcl) 1,000 mls @ 150 mls/hr IV ASDIRECTED [facility] Last Admin: 02/14/20 09:43 Dose: 150 mls/hr Documented by: Potassium Chloride (Klor-Con M20) 20 meq PO TID [facility] Last Admin: 02/14/20 09:43 Dose: 20 meq Documented by: Sodium Chloride (Saline Flush) 10 ml FLUSH ASDIRECTED PRN PRN Reason: Keep Vein Open Last Admin: 02/13/20 18:13 Dose: 10 ml Documented by: Vitamin B Complex/Vitamin C (Super B With Vitamin C) 1 cap PO DAILY [facility] Last Admin: 02/14/20 09:43 Dose: 1 cap Documented by: Discontinued Medications Thiamine HCl 100 mg/ Sodium (Chloride) 101 mls @ 202 mls/hr IV ONETIME ONE Stop: 02/13/20 20:39 Last Admin: 02/14/20 00:33 Dose: Not Given Documented by: Thiamine HCl 100 mg/ Sodium (Chloride) 101 mls @ 202 mls/hr IV ONETIME ONE Stop: 02/14/20 00:59 Last Admin: 02/14/20 00:22 Dose: 202 mls/hr Documented by: Lorazepam (Ativan) 1 mg IVPUSH ONETIME ONE Stop: 02/13/20 17:13 Last Admin: 02/13/20 18:14 Dose: 1 mg Documented by: - Exam General: Reports: Alert, Oriented HEENT: Reports: Pupils Equal, Pupils Reactive, EOMI, Mucous Membr. Moist/[place] Neck: Reports: Supple Lungs: Reports: Clear to Auscultation, Normal Respiratory Effort Cardiovascular: Reports: Regular Rate, Regular Rhythm GI/Abdominal Exam: Normal Bowel Sounds, Soft, Non-Tender, No Organomegaly, No Distention, No Abnormal Bruit, No Mass, Pelvis Stable (Male) Exam: No Hernia, Normal Inspection, Normal Prostate, Circumcised Rectal (Males) Exam: Normal Exam, Normal Rectal Tone, Prostate Normal Back Exam: Reports: Normal Inspection, Full Range of Motion Extremities: Normal Inspection, Normal Range of Motion, Non-Tender, No Pedal Edema, Normal Capillary Refill Skin: Reports: Warm, Dry, Intact Wound/Incisions: Reports: Healing Well Neurological: Reports: No New Focal Deficit Psy/Mental Status: Reports: Alert, Normal Affect, Normal Mood
== END 2020-02-14 12:40 | disposition home or self-care (01) ==
LOC: JD.ED 16:11 → JD.MS 20:52 → INTOOBSV 20:52 → JD.MS 02-14 02:09
PROVIDERS: ADMIT Pediatrics; ATTEND Pediatrics
DX: R56.9 Unspecified convulsions (principal); R55 Syncope and collapse; I11.9 Hypertensive heart disease without heart failure; E87.6 Hypokalemia; E83.51 Hypocalcemia; F10.239 Alcohol dependence with withdrawal, unspecified; E87.1 Hypo-osmolality and hyponatremia; Z20.828 Contact with and (suspected) exposure to other viral communicable diseases; Z79.891 Long term (current) use of opiate analgesic; Z79.899 Other long term (current) drug therapy
CPT/HCPCS: 36415; 70450; 71046; 80048; 80053; 80306; 80307; 81003; 82436; 82550; 82553; 83735; 83930; 83935; 84484; 85025; 85610; 87635; 93005; 93306; 95816; A9270; J2060; J3411; J3480; J7050; 96365; 96366; 96367; 96374; 96375; 99285-25; G0378; U0002